=== PATIENT | female | born 1975 | race Hispanic/Latino ===

== ENCOUNTER → 2022-04-18 | Outpatient (CLI) | payer MEDICAID ==
[~2022-04-18] MED LIST: SULF1TAB42 PO
[2022-04-18 08:48] LABS: INR 0.98 (0.85-1.15); PROTHROMBIN TIME 10.7 SEC (9.6-11.6)
[2022-04-18 08:50] LABS: PARTIAL THROMBOPLASTIN TIME 28.6 SEC (26.3-35.5)
[2022-04-18 16:45] LABS: APPEARANCE BODY FLUID SLIGHTLY CLOUDY (CLEAR); BODY FLUID WBC 131 /cu. mm.; COLOR,BODY FLUID YELLOW (LT YELLOW); SPECIMENTYPE,BODY FLUID PLEURAL; TOTAL VOLUME,BODY FLUID 500 mL
[2022-04-18 16:46] LABS: BODY FLUID RBC 2025 /cu. mm.
[2022-04-18 17:07] LABS: BF EOSINOPHIL 1 %; BF LYMPHOCYTE 72 %; BF MESOTHELIAL 12 %; BF MONOCYTE 1 %
== END | disposition home or self-care (01) ==
LOC: RAH 07:36
PROVIDERS: ATTEND Internal Medicine
DX: J90 Pleural effusion, not elsewhere classified (principal); E08.22 Diabetes mellitus due to underlying condition with diabetic chronic kidney disease; I13.0 Hypertensive heart and chronic kidney disease with heart failure and stage 1 through stage 4 chronic kidney disease, or unspecified chronic kidney disease; N18.2 Chronic kidney disease, stage 2 (mild); I50.9 Heart failure, unspecified; Z79.82 Long term (current) use of aspirin; E78.5 Hyperlipidemia, unspecified; Z79.899 Other long term (current) drug therapy
CPT/HCPCS: 32555; 71045; 82945; 84157; 83986; 83615; 89051; 85610; 85730; 87071; 87205; 36415; 88305; 88112; C1729

== ENCOUNTER 2023-11-07 06:24 | Observation (INO) | payer MEDICARE ==
[2023-11-05 13:29] LABS: HEMATOCRIT 41.2 % (36-48); MEAN CORPUSCULAR HEMOGLOBIN 32.1 pg (27.0-33.0); MEAN CORPUSCULAR HGB CONC 32.5 g/dL (32.0-36.0); MEAN CORPUSCULAR VOLUME 98.8 fL (79-99); RED BLOOD CELL COUNT(AUTO) 4.17 MIL/uL (4.00-5.50); RED CELL DISTRIBUTION WIDTH 12.4 % (11.0-15.5); WHITE BLOOD COUNT (AUTO) 7.8 K/uL (4.8-10.8)
[2023-11-05 13:39] LABS: CREATININE 3.1 mg/dL (0.5-1.0); POTASSIUM 4.3 mmol/L (3.5-5.1)
[2023-11-05 13:48] LABS: INR <= 0.93 (0.85-1.15); PROTHROMBIN TIME 10.6 SEC (9.6-11.6)
[2023-11-05 13:49] LABS: PARTIAL THROMBOPLASTIN TIME 28.5 SEC (26.3-35.5)
[2023-11-05 15:07] VITALS: BP 175/90; PULSE 74; RESP 17
[2023-11-07] VITALS (27 sets, daily range): BP systolic 132–159; BP diastolic 61–92; PULSE 73–86; RESP 14–20; O2SAT 100
[~2023-11-07 06:24] MED LIST changes: +AEC81 PO; +AMLO-257 PO; +FOLI0.8T22 PO; +MVI PO; +PRAV80TA21 PO; +SEVE800T7 PO; -SULF1TAB42 PO
[2023-11-07] MEDS ORDERED: CEFAZOLIN SODIUM 1 GM VIAL ONE (06:30)
[2023-11-07 07:35] LABS: CREATININE 3.1 mg/dL (0.5-1.0); POTASSIUM 4.1 mmol/L (3.5-5.1)
[2023-11-07] MEDS ORDERED: DEXAMETHASONE SOD PHOSPHATE 10MG/ML 1ML VIAL ONE (08:01)
[2023-11-07] MEDS ORDERED: LIDOCAINE PF 100MG/5ML (2%) SYRINGE 5ML ONE (08:01)
[2023-11-07] MEDS ORDERED: PROPOFOL 10 MG/ML 20ML VIAL IV ONE (08:02)
[2023-11-07] MEDS ORDERED: MIDAZOLAM HCL 1 MG/ML 2ML VIAL ONE (08:02)
[2023-11-07] MEDS ORDERED: ROCURONIUM BROMIDE 10MG/1ML 5ML VL ONE (08:02)
[2023-11-07] MEDS ORDERED: SUCCINYLCHOLINE CHLORIDE 20 MG/ML 10 ML VIAL ONE (08:02)
[2023-11-07] MEDS ORDERED: ONDANSETRON 4MG INJ ONE (08:02)
[2023-11-07] MEDS ORDERED: NEOSTIGMINE METHYLSULFATE 1MG/ML IV ONE (08:02)
[2023-11-07] MEDS: CEFAZOLIN SODIUM 2 GM VIAL IVPB ONE ×2 (08:21)
[2023-11-07] MEDS: CEFAZOLIN SODIUM 2 GM VIAL ONE (08:27)
[2023-11-07] MEDS ORDERED: EPHEDRINE SULFATE 50 MG/ML AMPULE ONE (08:45)
[2023-11-07] MEDS: SUGAMMADEX SODIUM 200 MG/2 ML VIAL IV ONE (09:25)
[2023-11-07] MEDS ORDERED: FENTANYL CITRATE PF 50 MCG/1 ML 2ML VIAL ONE (09:31)
[2023-11-07] MEDS ORDERED: TRAMADOL HCL 50 MG TABLET PO PRN (10:00)
[2023-11-07] MEDS ORDERED: ACETAMINOPHEN 325 MG TAB PO PRN (10:00)
[2023-11-07] MEDS: SEVELAMER HCL 800 MG TABLET PO SCH (12:51)
[2023-11-07] MEDS: CEFAZOLIN SODIUM 2 GM VIAL IVPB SCH ×2 (12:51→20:23)
[2023-11-07] MEDS: TRAMADOL HCL 50 MG TABLET PO PRN (17:28)
[2023-11-07] MEDS: ATORVASTATIN 20 MG TABLET PO SCH (20:23)
[2023-11-07] MEDS: ASPIRIN 81 MG EC TAB PO SCH (20:23)
[2023-11-07] MEDS: AMLODIPINE 5 MG TAB PO SCH (20:23)
[2023-11-07] MEDS: ONDANSETRON 4MG INJ IVP PRN (23:48)
[2023-11-08] VITALS (22 sets, daily range): BP systolic 112–183; BP diastolic 60–91; PULSE 80–89; RESP 14–19; TEMP 97.5–97.7; O2SAT 96
[2023-11-08] MEDS: Vitamin B Complex/Vit C/Folic Acid PO SCH (08:12)
[2023-11-08] MEDS: MVI PO SCH (08:13)
[2023-11-08] MEDS: LISINOPRIL 10 MG TABLET PO ONE (11:04)
[2023-11-08] MEDS: HEPARIN 5,000 UNIT VIAL IV SCH (15:20)
[2023-11-11 04:09] LABS: HEPATITIS Bs ANTIGEN SCREEN P Negative (Negative)
== END 2023-11-08 19:35 | disposition home or self-care (01) ==
LOC: DAH 06:24 → DAHIP 06:25 → 4DH 11:00
PROVIDERS: ADMIT Thoracic Surgery (Cardiothoracic Vascular Surgery); ATTEND Thoracic Surgery (Cardiothoracic Vascular Surgery)
DX: I12.0 Hypertensive chronic kidney disease with stage 5 chronic kidney disease or end stage renal disease (principal); E11.22 Type 2 diabetes mellitus with diabetic chronic kidney disease; N18.6 End stage renal disease; D62 Acute posthemorrhagic anemia; D68.9 Coagulation defect, unspecified; Z99.2 Dependence on renal dialysis; Z98.890 Other specified postprocedural states; Z79.899 Other long term (current) drug therapy
CPT/HCPCS: 80048 ×2; 84703; 85027; 85610; 85730; 86850; 86900; 86901; 36415 ×3; 71045; 93005; 96365; 96366 ×2; 96375 ×2; 36818; 82948 ×8; 96376; 86706; 87340; 86704; 90935; A6260; G0378 ×30; J7040; J7030; J3010; J0690 ×8; J1100; J0330; J3490 ×2; J2001; J2250; J2704; J2405 ×3; J2710; J1644 ×2; A6219; G0168; A4649 ×2; C1713 ×2; A4930; G0257

== ENCOUNTER → 2024-05-17 | Outpatient (CLI) | payer MEDICARE | END | disposition home or self-care (01) | LOC: RAH 13:39 | PROVIDERS: ATTEND Internal Medicine Cardiovascular Disease | DX: I07.1 Rheumatic tricuspid insufficiency (principal); I42.9 Cardiomyopathy, unspecified | CPT/HCPCS: 93306 ==